=== PATIENT | male | born 1965 | race Caucasian/White ===

== ENCOUNTER 2018-02-24 08:09 | Inpatient (IN) | payer MEDICAID ==
[~2018-02-24] VITALS: Ht 182.9 cm; Wt 99.8 kg
[2018-02-24 08:15] VITALS: Ht 182.9 cm; Wt 99.8 kg
[2018-02-24 08:56] LABS: PLATELET COUNT 256 x10^3mcL (130-400); RED CELL DISTRIBUTION WIDTH 13.7 % (11.5-14.5)
[2018-02-24 09:01] LABS: BILIRUBIN TOTAL 1.12 mg/dL (0.20-1.00); CALCIUM 8.4 mg/dL (8.5-10.1); CARBON DIOXIDE 24.6 mmol/L (21-32); CREATININE SERUM 2.1 mg/dL (0.7-1.3); POTASSIUM SERUM 4.8 mmol/L (3.5-5.1); TOTAL PROTEIN, SERUM 7.1 g/dL (6.4-8.2)
[2018-02-24 09:44] LABS: ALBUMIN 2.8 g/dL (3.4-5.0)
[2018-02-24 09:55] LABS: BAND NEUTROPHIL 53 % (0-10); BASOPHIL 0 % (0-2); MONOCYTE 8 % (0-7); SEGMENTED NEUTROPHILS 36 % (37-75)
[2018-02-24 10:05] LABS: rbc morphology (normal/abnorm) ABNORMAL (NORMAL)
[2018-02-24 10:06] LABS: PLATELET MORPHOLOGY PLATELETS NORMAL
[2018-02-24 12:13] LABS: MAGNESIUM 1.4 mg/dL (1.8-2.4); PHOSPHOROUS 3.2 mg/dL (2.5-4.9)
[2018-02-24 12:14] LABS: CHOLESTEROL/HDL RATIO 2.9
[2018-02-24 12:20] VITALS: BP 95/62
[2018-02-24 12:24] LABS: FREE T4 1.23 ng/dL (0.76-1.46); FREE THYROXINE INDEX 2.5 ug/dL (1.4-4.5); T4(THYROXINE) 7.1 ug/dL (4.7-13.3)
[2018-02-24 12:27] LABS: T3 TOTAL 0.5 ng/mL
[2018-02-24 12:33] LABS: CALCIUM 8.2 mg/dL (8.5-10.1); CARBON DIOXIDE 24.2 mmol/L (21-32); POTASSIUM SERUM 4.8 mmol/L (3.5-5.1)
[2018-02-24 12:35] VITALS: BP 105/61
[2018-02-24 12:45] VITALS: BP 105/61
[2018-02-24 15:06] LABS: microscopic required? NO
[2018-02-24 15:14] LABS: UA SPECIFIC GRAVITY 1.025 (1.005-1.035); urine erythrocyte NEGATIVE (NEGATIVE)
[2018-02-24 15:35] LABS: AMPHETAMINE QUAL UR POSITIVE (See below)
[2018-02-24 16:47] VITALS: BP 116/73
[2018-02-24 21:39] LABS: CALCIUM 7.8 mg/dL (8.5-10.1); CARBON DIOXIDE 29.4 mmol/L (21-32); CREATININE SERUM 1.7 mg/dL (0.7-1.3); POTASSIUM SERUM 4.7 mmol/L (3.5-5.1)
[2018-02-24 22:05] VITALS: BP 121/73
[2018-02-25 06:01] VITALS: BP 117/67
[2018-02-25 06:17] LABS: PLATELET COUNT 236 x10^3mcL (130-400)
[2018-02-25 06:35] LABS: CARBON DIOXIDE 24.9 mmol/L (21-32); CHLORIDE SERUM 103 mmol/L (98-107); CREATININE SERUM 1.3 mg/dL (0.7-1.3); GFR1 > 60 mL/min; GLUCOSE SERUM 85 mg/dL (74-106); PHOSPHOROUS 2.4 mg/dL (2.5-4.9); POTASSIUM SERUM 4.1 mmol/L (3.5-5.1); SODIUM SERUM 137 mmol/L (136-145)
[2018-02-25 09:21] LABS: BAND NEUTROPHIL 46 % (0-10); BASOPHIL 0 % (0-2); MONOCYTE 7 % (0-7); PLATELET MORPHOLOGY PLATELETS NORMAL; SEGMENTED NEUTROPHILS 43 % (37-75); rbc morphology (normal/abnorm) ABNORMAL (NORMAL)
[2018-02-25 09:52] VITALS: BP 121/69
[2018-02-25 13:14] VITALS: BP 116/74
[2018-02-25 16:51] VITALS: BP 130/73
[2018-02-25 20:59] VITALS: BP 111/78
[2018-02-26 05:54] VITALS: BP 124/80
[2018-02-26 06:33] LABS: PLATELET COUNT 233 x10^3mcL (130-400); RED CELL DISTRIBUTION WIDTH 14.4 % (11.5-14.5)
[2018-02-26 06:35] LABS: CALCIUM 8.5 mg/dL (8.5-10.1); CARBON DIOXIDE 24.1 mmol/L (21-32); CHLORIDE SERUM 106 mmol/L (98-107); GFR1 > 60 mL/min; GLUCOSE SERUM 89 mg/dL (74-106); MAGNESIUM 2.1 mg/dL (1.8-2.4); PHOSPHOROUS 2.4 mg/dL (2.5-4.9); POTASSIUM SERUM 3.3 mmol/L (3.5-5.1); SODIUM SERUM 139 mmol/L (136-145)
[2018-02-26 09:48] LABS: BAND NEUTROPHIL 17 % (0-10); MONOCYTE 5 % (0-7); SEGMENTED NEUTROPHILS 72 % (37-75)
[2018-02-26 09:49] LABS: PLATELET MORPHOLOGY PLATELETS NORMAL; rbc morphology (normal/abnorm) NORMAL (NORMAL)
[2018-02-26 10:07] VITALS: BP 121/84
[2018-02-26 13:01] VITALS: BP 111/71
[2018-02-26 17:03] VITALS: BP 107/67
[2018-02-26 20:16] VITALS: BP 155/95
[2018-02-27 05:36] VITALS: BP 145/90
[2018-02-27 06:35] LABS: CALCIUM 8.3 mg/dL (8.5-10.1); CARBON DIOXIDE 24.8 mmol/L (21-32); CHLORIDE SERUM 104 mmol/L (98-107); GFR1 > 60 mL/min; GLUCOSE SERUM 90 mg/dL (74-106); MAGNESIUM 1.8 mg/dL (1.8-2.4); PHOSPHOROUS 3.3 mg/dL (2.5-4.9); POTASSIUM SERUM 3.5 mmol/L (3.5-5.1); SODIUM SERUM 137 mmol/L (136-145)
[2018-02-27 06:37] LABS: PLATELET COUNT 257 x10^3mcL (130-400); RED CELL DISTRIBUTION WIDTH 14.1 % (11.5-14.5)
[2018-02-27 07:35] LABS: BAND NEUTROPHIL 16 % (0-10); BASOPHIL 0 % (0-2); MONOCYTE 9 % (0-7); PLATELET MORPHOLOGY PLATELETS NORMAL; SEGMENTED NEUTROPHILS 69 % (37-75); rbc morphology (normal/abnorm) NORMAL (NORMAL)
[2018-02-27 09:23] VITALS: BP 128/83
[2018-02-27 12:29] VITALS: BP 129/80
[2018-02-27 16:31] VITALS: BP 136/88
[2018-02-27 18:00] VITALS: BP 136/88
[2018-02-27 20:36] VITALS: BP 138/96
[2018-02-28 05:47] VITALS: BP 139/84
[2018-02-28 06:28] LABS: PLATELET COUNT 302 x10^3mcL (130-400); RED CELL DISTRIBUTION WIDTH 14.4 % (11.5-14.5)
[2018-02-28 06:36] LABS: CALCIUM 8.7 mg/dL (8.5-10.1); CARBON DIOXIDE 25.7 mmol/L (21-32); CHLORIDE SERUM 104 mmol/L (98-107); CREATININE SERUM 0.8 mg/dL (0.7-1.3); GFR1 > 60 mL/min; GLUCOSE SERUM 94 mg/dL (74-106); MAGNESIUM 1.9 mg/dL (1.8-2.4); PHOSPHOROUS 3.2 mg/dL (2.5-4.9); POTASSIUM SERUM 3.4 mmol/L (3.5-5.1); SODIUM SERUM 139 mmol/L (136-145)
[2018-02-28 07:29] LABS: BAND NEUTROPHIL 8 % (0-10); BASOPHIL 0 % (0-2); METAMYELOCTE 2 % (0-2); MONOCYTE 10 % (0-7); MYELOCYTE 1 % (0-2); SEGMENTED NEUTROPHILS 61 % (37-75)
[2018-02-28 07:30] LABS: PLATELET MORPHOLOGY PLATELETS NORMAL; rbc morphology (normal/abnorm) NORMAL (NORMAL)
[2018-02-28 08:59] VITALS: BP 137/81
== END 2018-02-28 10:25 | disposition left against medical advice (07) | DRG 720 ==
LOC: ED 08:09 → DU 11:22 → MU 02-28 09:56
PROVIDERS: Emergency Medicine; Family Medicine
DX: A41.9 Sepsis, unspecified organism (principal); N17.0 Acute kidney failure with tubular necrosis; J86.9 Pyothorax without fistula; R65.21 Severe sepsis with septic shock; E43 Unspecified severe protein-calorie malnutrition; E87.1 Hypo-osmolality and hyponatremia; K56.7 Ileus, unspecified; J85.1 Abscess of lung with pneumonia; J90 Pleural effusion, not elsewhere classified; J15.4 Pneumonia due to other streptococci; R16.0 Hepatomegaly, not elsewhere classified; J43.9 Emphysema, unspecified; E83.39 Other disorders of phosphorus metabolism; E83.42 Hypomagnesemia; E87.6 Hypokalemia; K42.9 Umbilical hernia without obstruction or gangrene; Z53.29 Procedure and treatment not carried out because of patient's decision for other reasons
CPT/HCPCS: 32555; 83880; 84439; 94150; C9113; J1885; J2001; J2270; J2540; J2543; J3010; J3475; J7030; J7620; Q0092; Q9967